=== PATIENT | male | born 1980 | race Caucasian/White ===

== ENCOUNTER 2018-04-21 17:47 | Emergency (ER) | payer SELFPAY ==
--- NOTE | 2018-04-21 19:00 | NUR ---
[facility]
== END 2018-04-21 19:00 | disposition left against medical advice (07) ==
LOC: MED 17:47
DX: Z53.21 Procedure and treatment not carried out due to patient leaving prior to being seen by health care provider (principal)

== ENCOUNTER 2018-04-21 20:44 | Emergency (ER) | payer MEDICAID ==
[~2018-04-21] VITALS: Ht 175.3 cm; Wt 88.5 kg
[2018-04-21 20:55] VITALS: BP 138/94
--- NOTE | 2018-04-21 20:57 | NUR ---
PT AMBULATORY TO ER LOBBY W/ STEADY GAIT IN STABLE CONDITION.
--- NOTE | 2018-04-21 22:27 | NUR ---
PT ambulated to bed 08.
--- NOTE | 2018-04-21 22:48 | NUR ---
Dr. Lugo evaluating patient at bedside.
[2018-04-21] MEDS ORDERED: CEPHALEXIN 500 MG CAP PO ONE (22:55)
[2018-04-21] MEDS ORDERED: SULFAMETH/TRIMETH DS 800/160MG 1 TAB PO ONE (22:55)
[2018-04-21 23:05] VITALS: BP 127/74
--- NOTE | 2018-04-21 23:05 | NUR ---
Patient discharged with v/s stable. Written and verbal after care instructions given and explained. Patient alert, oriented and verbalized understanding of instructions. Ambulatory with steady gait. All questions addressed prior to discharge. ID band removed. Patient advised to follow up with PMD. Rx of Bactrim DS and Keflex given. Patient educated on indication of medication including possible reaction and side effects. Opportunity to ask questions provided and answered.
== END 2018-04-21 23:05 | disposition home or self-care (01) ==
LOC: MED 20:44
DX: L02.414 Cutaneous abscess of left upper limb (principal)
CPT/HCPCS: 99283